=== PATIENT | female | born 1955 | race Caucasian/White ===

== ENCOUNTER 2017-02-24 14:16 | Emergency (ER) | payer MEDICAID ==
[~2017-02-24] VITALS: Ht 167.6 cm; Wt 63.3 kg
[2017-02-24 14:25] VITALS: BP 156/100
== END 2017-02-24 16:03 | disposition left against medical advice (07) ==
LOC: ER 14:17
DX: K08.89 Other specified disorders of teeth and supporting structures (principal); Z53.21 Procedure and treatment not carried out due to patient leaving prior to being seen by health care provider

== ENCOUNTER 2017-02-27 22:23 | Emergency (ER) | payer MEDICAID ==
[~2017-02-27] VITALS: Ht 167.6 cm; Wt 45.5 kg
[2017-02-27 22:28] VITALS: BP 107/63
== END 2017-02-27 22:46 | disposition left against medical advice (07) ==
LOC: ER 22:23
DX: K08.89 Other specified disorders of teeth and supporting structures (principal); Z53.21 Procedure and treatment not carried out due to patient leaving prior to being seen by health care provider

== ENCOUNTER 2017-03-03 08:21 | Emergency (ER) | payer MEDICAID ==
[~2017-03-03] VITALS: Ht 167.6 cm; Wt 63.6 kg
[2017-03-03] MEDS ORDERED: DOCU100C41 PO (09:35)
[2017-03-03] MEDS ORDERED: famotidine 10mg tablet PO SCH (09:35)
[2017-03-03] MEDS ORDERED: ACET1TAB12 PO (09:35)
[2017-03-03] MEDS ORDERED: ibuprofen 200mg tablet PO ONE (09:35)
[2017-03-03] MEDS ORDERED: famotidine 20mg tablet PO SCH (09:52)
[2017-03-03 10:19] VITALS: BP 160/92
== END 2017-03-03 10:22 | disposition home or self-care (01) ==
LOC: ER 08:22
DX: S30.0XXA Contusion of lower back and pelvis, initial encounter (principal); K02.9 Dental caries, unspecified; G89.29 Other chronic pain; I10 Essential (primary) hypertension; F17.200 Nicotine dependence, unspecified, uncomplicated; Z88.6 Allergy status to analgesic agent; Y08.89XA Assault by other specified means, initial encounter; Y93.89 Activity, other specified; Y92.89 Other specified places as the place of occurrence of the external cause; Y99.8 Other external cause status
CPT/HCPCS: 99283